=== PATIENT | male | born 1990 | race Caucasian/White ===

== ENCOUNTER 2021-02-05 15:08 | Emergency (ER) | payer MEDICAID ==
[~2021-02-05] VITALS: Ht 182.9 cm; Wt 92.0 kg
[2021-02-05] MEDS ORDERED: LORazepam 1MG TABLET ONE ×2 (15:58→16:35)
[2021-02-05] MEDS ORDERED: LORazepam 1MG TABLET PO ONE ×2 (16:00→16:30)
--- NOTE | 2021-02-05 16:04 | NUR ---
PT C/O FEELING ANXIOUS. STARTED TODAY. PT HAD AN ANXIETY ATTACK EARLY TODAY BUT WAS ABLE TO WORK THROUGH IT. PT FEELING LIKE ESTRADA CLOSING IN AND CHEST PRESSURE, 05/15. PT HAS HX OF ANXIETY ATTACKS AND SEE A PRIMARY CARE FOR THIS.
[2021-02-05 18:10] VITALS: BP 119/65
--- NOTE | 2021-02-05 18:17 | NUR ---
PT REC'VD DISCHARGE INSTRUCTIONS AND EDUCATION. PT HAD NO FURTHER QUESTIONS. PT AND SPOUSE AMBULATED TO DC AREA, STEADY GAIT.
== END 2021-02-05 18:20 | disposition home or self-care (01) ==
LOC: ED 18:18
DX: F41.0 Panic disorder [episodic paroxysmal anxiety] (principal)
CPT/HCPCS: 99285

== ENCOUNTER → 2021-03-29 | Outpatient (CLI) | payer MEDICAID | END | disposition home or self-care (01) | LOC: CFH 13:09 | PROVIDERS: ATTEND Physician Assistant | DX: K40.90 Unilateral inguinal hernia, without obstruction or gangrene, not specified as recurrent (principal); Z98.1 Arthrodesis status | CPT/HCPCS: 74176; 76870; 93975 ==

== ENCOUNTER 2021-03-30 15:19 | Emergency (ER) | payer MEDICAID ==
[~2021-03-30] VITALS: Ht 188 cm; Wt 90.0 kg
[2021-03-30 16:16] LABS: MICROSCOPIC NOT IND
--- NOTE | 2021-03-30 17:49 | NUR ---
DX W/ INGUINAL HERNIA YESTERDAY. TOLD TO F/U WITH SURGEON. EARLIEST APPT ISN'T FOR 10 DAYS. PAIN UNBEARABLE LBM THIS AM
[2021-03-30] MEDS ORDERED: HYDROmorphone 1 MG/ML, 1ML INJ ONE (20:10)
[2021-03-30] MEDS ORDERED: ONDANSETRON 2MG/ML, 2ML ONE (20:10)
[2021-03-30] MEDS ORDERED: HYDROmorphone 1 MG/ML, 1ML INJ IV ONE (20:30)
[2021-03-30] MEDS ORDERED: SODIUM CHLORIDE FLUSH 10ML SYR IVF ONE (20:30)
[2021-03-30] MEDS ORDERED: SODIUM CHLORIDE 0.9% 1,000ML IVBOLUS ONE (20:30)
[2021-03-30] MEDS ORDERED: ONDANSETRON 2MG/ML, 2ML IVPush ONE (20:30)
[2021-03-30 20:38] VITALS: BP 145/78
[2021-03-30] MEDS ORDERED: KETOROLAC 30 MG/1 ML ONE (20:44)
[2021-03-30] MEDS ORDERED: KETOROLAC 30 MG/1 ML IVPush ONE (21:00)
== END 2021-03-30 21:46 | disposition home or self-care (01) ==
LOC: ED 16:35
DX: K40.91 Unilateral inguinal hernia, without obstruction or gangrene, recurrent (principal)
CPT/HCPCS: 81003; 96361; 96374; 96375; 99284; J1170; J1885; J2405; J7030